=== PATIENT | male | born 1975 | race Caucasian/White ===

== ENCOUNTER 2025-04-28 16:56 | Emergency (ER) | payer MEDICARE, MEDICAID, SELFPAY ==
--- NOTE | ~2025-04-28 | XR_ITS ---
CLINICAL HISTORY: SOB 2 view chest x-ray. Comparison: None Findings: Normal lung volumes. Lungs are clear. No pneumothorax or pleural effusion. Heart size normal. No passive venous congestion. No midline shift or tracheal deviation. No acute fracture. Impression: 1. No acute cardiopulmonary disease. This document has been electronically signed by: Jeb De Jesus MD on 04/28/2025 18:21:25
[2025-04-28 17:01] VITALS: BP 157/83; PULSE 112; RESP 18; TEMP 37; O2SAT 96; BMI 25.1
--- NOTE | 2025-04-28 17:01 | ED_ITS ---
HPI - Skin/Abscess/Foreign Bdy General Chief complaint: Skin/Abscess/Foreign Body Stated complaint: rt ear lump/needs drained Time Seen by Provider: 04/28/25 17:24 Source: patient and RN notes reviewed Mode of arrival: ambulatory Limitations: no limitations History of Present Illness ED Provider: Ayde Hensley PA-C HPI narrative: This is a 19-uaz[age]-kxb-male, with a past medical history of asthma as well as an PA, who presents emergency department with concerns of painful swelling of the left ear region approximately seven days ago. Since onset the lump has progressively enlarged and pain has intensified. He reports intermittent fevers over the same time period, with a documented peak of 103 ?F two days ago. He is taking acetaminophen for fever and pain (most recently at ~13:00 today); he has not taken ibuprofen. No preceding trauma, insect bite, or manipulation of the ear recalled. A similar swelling occurred >2 years ago and resolved after drainage. Associated symptoms include a mild productive cough (attributed to smoking cessation) and mild sore throat. He denies dysphagia. Occasional shortness of breath occurs, which he attributes to asthma; mild SOB is present currently. No abdominal pain, nausea, or vomiting. No current chest pain. No other complaints or concerns at this time. MD complaint: abscess/boil Onset (ago): day(s) Quality: aching Pain Consistency: constant Relieving factors: none Exacerbating factors: none Context: none Associated symptoms: fever, myalgias and cough Treatments prior to arrival: none Related Data Previous Rx's ?Medication ?Instructions ?Recorded cephalexin 500 mg capsule 500 mg PO QID 7 days #28 cap s 04/28/25 doxycycline hyclate 100 mg tablet 100 mg PO BID 7 days #14 tabs 04/28/25 Allergies Allergy/AdvReac Type Severity Reaction Status Date / Time naproxen (From Naprosyn) Allergy Intermediate Hives Verified 04/28/25 17:03 tramadol (From Ultram) Allergy Intermediate Rash Verified 04/28/25 17:03 bee pollen (BEE STINGS) Allergy Unknown THROAT Verified 04/28/25 17:03 SWELLING cyclobenzaprine Allergy Unknown RASH Verified 04/28/25 17:03 ibuprofen (From Motrin) Allergy Unknown Rash Verified 04/28/25 17:03 onion (ONIONS) Allergy Unknown UNKNOWN Verified 04/28/25 17:03 rofecoxib Allergy Unknown RASH Verified 04/28/25 17:03 Review of Systems 2 Review of Systems: Constitutional : +Fever, No Chills ENT/Mouth : No sore throat, No Rhinorrhea Eyes: No Eye Pain, No Swelling, No Redness Cardiovascular : No Chest Pain, No SOB Respiratory : +Cough, No Sputum Gastrointestinal : No Nausea, No Vomiting, No Diarrhea, No abdominal Pain Genitourinary : No Dysuria, No Hematuria Musculoskeletal : No joint pain, No Myalgias, No Joint Swelling Skin : No Skin Lesions Neuro : No Weakness, No Numbness, No Headache All other systems reviewed and are negative Yes all other systems are reviewed and are negative Constitutional: Constitutional: Reports as per HPI Physical Exam 2 Vital Signs: Vital Signs: Last Vital Signs Temp 98.3 F 04/28/25 20:19 Pulse 84 04/28/25 20:19 Resp 16 04/28/25 20:19 BP 129/81 04/28/25 20:19 Pulse Ox 97 04/28/25 20:19 O2 Del Method Room Air 04/28/25 20:19 BMI result Body Mass Index 25.1 Const: General: cooperative, comfortable and no acute distress O rientation/consciousness: patient oriented x3 Limitations: no limitations HEENT: Head: Yes normal to inspection, Yes normocephalic and Yes atraumatic Ears: hearing grossly normal bilaterally and TM's normal bilaterally General nose exam: Normal external nose present Face and sinus: Yes normal facial exam Mouth: Normal oral and palatal mucosa present, oropharynx normal and moist mucous membranes Throat: Yes posterior oropharynx normal Eyes: General: appearance normal, both eyes and all related structures E yelids: Yes eyelids normal Conjunctivae: conjunctivae normal Sclerae: s clerae normal Pupils: Equal, round and reactive pupils present EOM: EOMs intact bilaterally Neck: Neck: Yes normal visual inspection, Yes full ROM and Yes no lymphadenopathy Lymphatic: no lymphadenopathy noted Chest: Chest palpation & inspection: normal inspection of the chest Resp: Effort & Inspection: normal respiratory effort and able to speak in complete sentences Auscultation: clear to auscultation bilaterally, no crackles, no rales, no rhonchi and no wheezes Cardio: Rate: regular rate Rhythm: regular rhythm Heart sounds: S1 normal heart sound present and S2 normal heart sound present GI: Inspection: Yes normal to inspection Skin: Other: right ear, just inferior to the earlobe there is an area of tenderness and fluctuance. No surrounding erythema or warmth. No drainage. Neuro: General: patient oriented x3 and moves all extremities Cranial nerves: Yes Equal, round and reactive pupils present Extrem: General: Yes normal to inspection Right upper extremity: normal to inspection Left upper extremity: normal to inspection Right lower extremity: normal to inspection Left lower extremity: normal to inspection Course Course Course Narrative: Deena Diehl TESTING ENGINEER 04/28 1702 This is a rapid medical exam. Deferred additional HPI, ROS, PE to primary provider. 50yo male with PMH of asthma here with cyst to right ear lobe x 7 days Will need I&D VSS Medications Administered Discontinued Medications Generic Name Dose Route Start Last Admin Trade Name Freq PRN Reason Stop Dose Admin Cephalexin HCl 500 mg 04/28/25 19:25 04/28/25 19:40 Cephalexin 500 Mg Capsule PO 04/28/25 19:26 500 mg ONCE ONE Administration Doxycycline Monohydrate 100 mg 04/28/25 19:25 04/28/25 19:40 Doxycycline Monohydrate 100 Mg Capsule PO 04/28/25 19:26 100 mg ONCE ONE Administration Lidocaine HCl 5 ml 04/28/25 17:44 04/28/25 18:22 Lidocaine Hcl 1 % Mpf 5 Ml Vial INFILTRATI 04/28/25 17:45 5 ml ONCE ONE Administration Medical Decision Making Medical Decision Making [facility] Narrative: Patient presents with a 7-day history of painful, enlarging swelling just inferior to the right ear lobe with systemic symptoms (fever up to 103 ?F, tachycardia, diaphoresis). Concern for infected auricular cyst/abscess versus other soft-tissue infection. Additional work-up initiated today. Problem #1: Painful swelling with systemic symptoms (suspected abscess/cellulitis) Assessment: 7-day progressive enlargement and pain, intermittent high-grade fevers, tachycardia on presentation, local tenderness and swelling of external ear. Possible recurrence of prior abscess vs cyst. Plan: * Obtain blood work for baseline labs and infection evaluation * Discuss case with supervising physician/colleague for bedside evaluation and input who saw patient at bedside, recommending I&D - likely a cyst, patient understands that this will likely return even with incision and drainage and patient will need to be seen by dermatology or ENT. Attending physician also in agreement to obtain labs given fever. Area does not appear to be cellulitic in nature or abscess in nature therefore unclear what patient is having fever from. * Continue acetaminophen as needed for fever/pain. * Reassess following lab results; further management to be determined (possible I&D, antibiotics, or ENT involvement). Problem #2: Fever with tachycardia ? rule out systemic infection Assessment: Intermittent fevers to 103 ?F and elevated heart rate today, likely secondary to the local infectious process. Plan: * Labs as above to evaluate for systemic involvement. * Monitor vital signs during ED stay. * Symptomatic control with acetaminophen. Patient aware of need for further evaluation; will remain in ED for continued work-up. 6:50 PM 04/28/2025 (Ayde Hensley PA-C): Labs returned, no profound leukocytosis. Stable H&H. Chemistry revealing no significant electrolyte derangement. Chest x-ray does not reveal any acute pathology. Awaiting viral swabs. EKG was performed, revealing normal sinus rhythm at a ventricular rate of 82 beats per minute, OH interval 164, QT QTC 358/ 418. There is a right bundle-branch block, which was not detected on previous EKG however previous EKG in system is from 2007. Troponin was added to the workup. Incision and drainage was performed, revealing an infected cyst. Will treat with antibiotics. We will also repeat troponin due to EKG changes - although this is unlikely new. Pt reports that he had a PA last year and was seen at [facility]. He has no active chest pain or shortness of breath. Sign out given to my colleague pending repeat troponin. 8:46 PM 04/28/2025 (Deja Serjio Edmar WELLS): Troponin is negative x2. He does not have any active chest pain. Patient will be discharged. Referral to general surgery clinic given to the patient. Agrees and understands this plan. All questions were addressed. Differential Diagnosis Differential Diagnoses: The differential diagnosis associated with the presentation includes Cellulitis, cyst, abscess, insect bite Lab Data [facility] Lab Attestation statement: I reviewed the patient's lab results. See [facility] 04/28/25 18:14 04/28/25 18:14 Labs: Lab Results 04/28/25 04/28/25 Range/Units 18:14 20:01 WBC 10.9 H (4.8-10.8) X10*3/uL RBC 4.61 (4.60-5.80) X10*6/uL Hgb 14.7 (14.0-18.0) g/dl Hct 41.9 L (42.0-52.0) % MCV 90.9 (80.0-98.0) fL MCH 31.9 (27.0-33.0) pg MCHC 35.1 (31.0-36.0) g/dl RDW 12.7 (11.0-16.0) % Plt Count 282 (160-400) X10*3/uL MPV 10.4 (9.4-12.4) fL Immature Gran % (Auto) 0.5 H (0.0-0.4) % Neut % (Auto) 60.4 (45-73) % Lymph % (Auto) 28.7 (20-40) % [place] % (Auto) 7.1 (2-11) % Eos % (Auto) 2.8 (0-4) % Baso % (Auto) 0.5 (0-2) % Lymph # (Auto) 3.1 (1.2-4.9) X10*3/uL [place] # (Auto) 0.8 (0.1-1.2) X10*3/uL Eos # (Auto) 0.3 (0.0-0.4) X10*3/uL Baso # (Auto) 0.1 (0.0-0.2) X10*3/uL Abs Immat Gran (auto) 0.05 H (0.00-0.03) X10*3/uL Absolute Neuts (auto) 6.6 (2.0-8.3) x10*3/uL Absolute Nucleated RBC 0.000 (0.0-0.012) X10*3/uL Nucleated RBC % (auto) 0.0 (0.0-0.2) /100WBC Sodium 140 (135-145) mmol/L Potassium 3.9 (3.3-5.1) mmol/L Chloride 107 (96-108) mmol/L Carbon Dioxide 23 (22-29) mmol/L Anion Gap 14 (12-20) BUN 11 (9-16) mg/dL Creatinine 0.92 (0.5-1.4) mg/dL Estim Creat Clear Calc 83.5 Estimated GFR > 60 Random Glucose 88 (60-115) mg/dL Lactic Acid 1.0 (0.5-2.0) mmol/L Calcium 9.6 (8.4-10.2) mg/dL Total Bilirubin 0.3 (0.0-1.0) mg/dL Direct Bilirubin 0.1 (0.0-0.5) mg/dL AST 22 (5-37) U/L ALT 15 (0-40) U/L Alkaline Phosphatase 101 (39-117) U/L Troponin I High Sens < 2.7 < 2.7 (<3.5-35.0) ng/L Total Protein 7.0 (6.5-8.0) g/dL Albumin 4.6 (3.5-5.0) g/dL Influenza Type A (PCR) NEGATIVE (Negative) Influenza Type B (PCR) NEGATIVE (Negative) RSV RNA Qual (PCR) NEGATIVE (Negative) SARS-CoV-2 RNA (RT-PCR) NEGATIVE (Negative) Radiology Impression Discussion of test interpretation with radiology: I have reviewed the radiologist's reading. Radiologist Impression: Findings: Normal lung volumes. Lungs are clear. No pneumothorax or pleural effusion. Heart size normal. No passive venous congestion. No midline shift or tracheal deviation. No acute fracture. Impression: 1. No acute cardiopulmonary disease. This document has been electronically signed by: Jeb De Jesus MD on 04/28/2025 18:21:25 Dictated By: Jeb De Jesus MD Attestation Attending Attestation: I saw this patient with the PA. I was involved in medical decision making of this patient and was present for physical exam. Procedures Abscess I/D Site: face Side (if applicable): right Local Anesthetic: lidocaine 1% Amount of anesthesia used (mL): 3 Technique: incised with blade Amount of fluid expressed (mL): 5 Sent for culture/gram staining?: Yes Irrigation: Yes Packing used?: none Discharge Plan Discharge Clinical Impression: Infected sebaceous cyst Patient Disposition: Home, Self-Care Instructions: Cyst (ED) Additional Instructions: You were seen in the emergency department you were found to have an infected sebaceous cyst. We performed an incision and drainage to the area. The area may continue to drain, please apply warm compresses to the area to allow facilitation of this. There is a high likelihood that this cyst will return therefore it is very important that you follow-up with the surgical team. Call to make an appointment. please keep wound clean and dry. Watch for any signs of infection including but not limited to increased redness, swelling, fevers or chills. Please take prescribed antibiotic as directed, finish the entire course even if your symptoms improve. If any new or worsening symptoms occur including but not limited to severe chest pain, shortness for breath, increased redness, swelling, fevers or chills, please return for re-evaluation. Your EKG did show a right bundle-branch block, you have a history of a heart attack, and this could be an old EKG finding therefore we repeated blood testing which revealed that this is not a new finding. I am giving you a referral to a regroover as you are not currently being followed by one. Prescriptions: New cephalexin 500 mg capsule 500 mg PO QID 7 Days Qty: 28 0RF doxycycline hyclate 100 mg tablet 100 mg PO BID 7 Days Qty: 14 0RF Referrals: [facility] [Provider Group] [facility] [Provider Group, General Surgery] Interventions: ED Discharge Assessment Last Done: 04/28/25 20:47 Print Language: Croatian
--- NOTE | 2025-04-28 17:42 | ECG_ITS ---
Test Reason : TACHY Blood Pressure : */* mmHG Vent. Rate : 82 BPM Atrial Rate : 82 BPM P-R Int : 164 ms QRS Dur : 120 ms QT Int : 358 ms P-R-T Axes : 52 -20 31 degrees QTcB Int : 418 ms Normal sinus rhythm Right bundle branch block Abnormal ECG When compared with ECG of 01-Sep-2007 06:07, Right bundle branch block is now Present Referred By: Ayde Hensley Electronically Signed By: JYOTHI PETTY MD
[2025-04-28 18:22] LABS: MANUAL DIFF FLAG NO
[2025-04-28] MEDS: Lidocaine HCl 1 % MPF 5 ML VIAL INFILTRATI (18:22)
[2025-04-28 18:26] LABS: Hematocrit 41.9 % (42.0-52.0); Hemoglobin 14.7 g/dl (14.0-18.0); Imm Gran Abs Auto 0.05 X10*3/uL (0.00-0.03); Imm Gran Pct Auto 0.5 % (0.0-0.4); Lymphocytes Absolute Auto 3.1 X10*3/uL (1.2-4.9); Mean Corpuscular HGB Conc 35.1 g/dl (31.0-36.0); Mean Corpuscular Hemoglobin 31.9 pg (27.0-33.0); Mean Corpuscular Volume 90.9 fL (80.0-98.0); NRBC Abs Auto 0.000 X10*3/uL (0.0-0.012); NRBC Pct Auto 0.0 /100WBC (0.0-0.2); Platelet Count 282 X10*3/uL (160-400); Red Blood Count 4.61 X10*6/uL (4.60-5.80); White Blood Count 10.9 X10*3/uL (4.8-10.8)
[2025-04-28 18:38] LABS: Alanine Aminotransferase 15 U/L (0-40); Albumin Level 4.6 g/dL (3.5-5.0); Alkaline Phosphatase 101 U/L (39-117); Anion Gap 14 (12-20); Aspartate Amino Transferase 22 U/L (5-37); Blood Urea Nitrogen 11 mg/dL (9-16); Calcium 9.6 mg/dL (8.4-10.2); Carbon Dioxide 23 mmol/L (22-29); Chloride 107 mmol/L (96-108); Creatinine Clr Calc Pharmacy 83.5; Estimated Glomerular Filt Rate > 60; Potassium 3.9 mmol/L (3.3-5.1); Sodium 140 mmol/L (135-145); Total Protein 7.0 g/dL (6.5-8.0)
[2025-04-28 19:06] LABS: Resp Syncy Virus RNA Qual PCR NEGATIVE (Negative); SARS COV2 PCR INHOUSE NEGATIVE (Negative)
[2025-04-28 19:14] LABS: Troponin-I High Sensitivity < 2.7 ng/L (<3.5-35.0)
[2025-04-28 20:19] VITALS: BP 129/81; PULSE 84; RESP 16; TEMP 36.8; O2SAT 97
[2025-04-28 20:37] LABS: Troponin-I High Sensitivity < 2.7 ng/L (<3.5-35.0)
[2025-04-28 20:47] VITALS: BP 129/81; PULSE 84; RESP 16; TEMP 36.8; O2SAT 97
== END 2025-04-28 20:48 | disposition home or self-care (01) ==
PROVIDERS: Physician Assistant Medical; Emergency Provider Student in an Organized Health Care Education/Training Program
DX: L72.3 Sebaceous cyst (principal); R50.9 Fever, unspecified; I45.10 Unspecified right bundle-branch block; I25.2 Old myocardial infarction; Z88.5 Allergy status to narcotic agent; Z88.6 Allergy status to analgesic agent
CPT/HCPCS: 10060; 71046; 80048; 80076; 83605; 84484; 85025; 87040; 87070; 87205; 87637; 93005; 99284; J2003

== ENCOUNTER → 2025-04-28 17:42 | Outpatient (BNV) | payer MEDICARE, MEDICAID, SELFPAY | PROVIDERS: Emergency Provider Student in an Organized Health Care Education/Training Program; Visit Provider Internal Medicine Cardiovascular Disease | DX: I45.10 Unspecified right bundle-branch block (principal) | CPT/HCPCS: 93010 ==

== ENCOUNTER 2025-05-08 09:08 | Outpatient (AMB) | payer MEDICARE, MEDICAID, SELFPAY ==
--- NOTE | 2025-05-08 09:09 | MHC.OFFVIS ---
Vital Signs 05/08/25 09:14 Height 5 ft 5 in Weight 151 lb 0.266 oz BMI 25.1 Intake Visit Reasons: sebaceaous cyst ear Intake Note: Patient presents for [facility] emergency department follow-up for sebaceous cyst ear. Pt c/o; completed cephalexin and doxycycline, reports this cyst was drained in the ER on 04/28/2025 but it is swelling again, reports pain, right auricular area, denies fever, chills, nausea or vomiting, denies drainage. ER visit: 04/28/2025 04/28/2025: Chest X-ray Virtual Classroom Manager Required: No Accompanied by: Self / Same As Patient Allergies naproxen (From Naprosyn) Allergy (Intermediate, Verified 05/08/25 09:16) Hives tramadol (From Ultram) Allergy (Intermediate, Verified 05/08/25 09:16) Rash bee pollen (BEE STINGS) Allergy (Unknown, Verified 05/08/25 09:16) THROAT SWELLING cyclobenzaprine Allergy (Unknown, Verified 05/08/25 09:16) RASH ibuprofen (From Motrin) Allergy (Unknown, Verified 05/08/25 09:16) Rash onion (ONIONS) Allergy (Unknown, Verified 05/08/25 09:16) UNKNOWN rofecoxib Allergy (Unknown, Verified 05/08/25 09:16) RASH HPI HPI sebaceaous cyst ear: Details: Patient reports that he was seen the emergency department on 04/28/2025 where he had incision and drainage of the right ear cyst. He has completed the course of antibiotics that was prescribed for him initially this was smaller after drainage but has since increased in size and become painful again. [facility] Surgical History (Updated 05/08/25 @ 09:17 by MARTINE Iglesias) No pertinent past surgical history Family History (Updated 05/08/25 @ 09:17 by MARTINE Iglesias) Other Family history unknown Social History (Updated 05/08/25 @ 09:17 by MARTINE Iglesias) Patient Tobacco Use Status: Tobacco use Unknown Physical Exam Vital Signs: BMI result Body Mass Index 25.1 Const General: comfortable and no acute distress Orientation/consciousness: patient oriented x3 HEENT Head images:  1. 2 x 3 cm area of induration with scant fluctuance superior aspect. No erythema, no drainage. Previous incision and drainage site healed over. Tender to palpation Neuro General: patient oriented x3 Assessment & Plan Assessment & Plan (1) Infected sebaceous cyst: Code(s): L72.3 - Sebaceous cyst; L08.9 - Local infection of the skin and subcutaneous tissue, unspecified Category: Medical Plan 50-year-old male seen in the office for right ear cyst following incision and drainage in the ED on 04/28/2025. Initially had relief after incision and drainage. G stain from culture taken and I&D showing 4+ Gram-positive cocci, no growth on culture. Completed his course of antibiotics. But states over the past week and has been filling up slowly and causing more pain. On exam there is a 2 x 3 cm area of induration with scant fluctuance on the superior aspect which may represent a seroma or recurrent abscess buildup. There is no active drainage, no evidence of infection such as redness. Due to schedule in the office today unable to perform incision drainage, recommending he return in 2 weeks for possible incision and drainage. In the meantime I recommended using warm compress to the area 2 to 3 times a day which may facilitate resolution of this issue. If not resolving will likely incision and drainage in the office, may need excision of this down the road once stabilized. No need for additional antibiotics as this appears to not be acutely infected. Did discuss return precautions, if developing fevers, worsening pain recommended he present to the ED. he understands this and agrees. Coding Level of Care Code New Pt Level 4 (21411) Diagnoses Infected sebaceous cyst L72.3; L08.9
[2025-05-08 09:14] VITALS: BMI 25.1
--- OUTSIDE RECORDS SUMMARY | 2025-05-08 10:02 | XMS_ITS | Clinical Summary ---
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 D X:Wasp sting-induced anaphylaxis Chronic back pain 07/26/2009 DX:Chronic mitch k pain Compartment syndrome (CMS/HCC V24) DX:Compartment syndrome (HCC); COMMENT: of leg Family History Medical History Relation Name Comments Heart attack Father age 51 Coronary artery disease Father's side mot her' side also Cataracts Mother Diabetes Mother and sister Hypertension Mother and sister Blindness Neg Hx Glaucoma Neg Hx Macular degeneration Neg Hx Strabismus Neg Hx Relation Name Status Comments Brother (Age 18) Father (Age 51) Father's side Mother Sister (Age 27) kiklled in [place] Social History Tobacco Use Types Packs/Day Years Used Date Smoking Tobacco: Every Day Smokeless Tobacco: Never Alcohol Use Standard Drinks/Week Comments Yes 0 (1 standard drink = 0.6 oz pur e alcohol) Sex and Gender Information Value Date Recorded Sex Assigned at Not on file Legal Sex Male 1:30 PM EST Gender Identity Not on file Sexual Orientation Not on file Obstetrics History Plan of Treatment Health Maintenance Due Date Last Done Comments Hepatitis B Vaccines (1 of 3 - 19+ 3-dose series) 1994 DTaP,Tdap,and Td Vaccines (2 - Td or Tdap) 05/23/2020 05/23/2010 Depression Screening 06/14/2024 Pneumococcal Vaccine: 50+ Ye ars (1 of 1 - PCV) 2025 Zoster Vaccines (1 of 2) 2025 COVID-19 Vaccine (1 - 2024-2 6 season) 2025 Influenza Vaccine (#1) 2025 RSV Immunization Adult Patie nts (1 - 1-dose 75+ series) 2050 HIB Vaccines Aged Out No longer eligi ble based on patient's age to complete this topic HPV Vaccines Aged Out No longer eligi ble based on patient's age to complete this topic Hepatitis A Vaccines Aged Out No long er eligible based on patient's age to complete this topic IPV Vaccines Aged Out No longer eligi ble based on patient's age to complete this topic MMR Vaccines Aged Out No longer eligi ble based on patient's age to complete this topic Meningococcal ACWY Vaccine Aged Out N o longer eligible based on patient's age to complete this topic Meningococcal B Vaccine Aged Out No l onger eligible based on patient's age to complete this topic RSV Immunization Patients Un bridget 20 months Aged Out No longer eligible b ased on patient's age to complete this topic Varicella Vaccines Aged Out No longer eligible based on patient's age to complete this topic Care Teams Grinder Gear Relationship Specialty Start Date End Date Kenneth Walsh MD [address] [place] [address] [address] [place], [place] PCP - General Internal Medicine 03/25/21
== END 2025-05-08 09:25 | disposition home or self-care (01) ==
LOC: HO.HGS 09:09
PROVIDERS: PCP Nurse Practitioner
DX: L72.3 Sebaceous cyst (principal); L08.9 Local infection of the skin and subcutaneous tissue, unspecified
CPT/HCPCS: 99204

== ENCOUNTER → 2025-05-08 09:08 | Outpatient (BNVA) | payer MEDICARE, MEDICAID, SELFPAY | PROVIDERS: PCP Nurse Practitioner | DX: L72.3 Sebaceous cyst (principal); L08.9 Local infection of the skin and subcutaneous tissue, unspecified | CPT/HCPCS: 99202 ==

== ENCOUNTER 2025-05-16 14:08 | Outpatient (AMB) | payer MEDICARE, MEDICAID, SELFPAY ==
[2025-05-16 14:09] VITALS: BP 140/76; PULSE 105; BMI 24.9
--- NOTE | 2025-05-16 14:09 | A.OFFVIS_ITS ---
Vital Signs 05/16/25 14:09 Height 5 ft 5 in Weight 149 lb 14.629 oz BMI 24.9 BP 140/76 H Blood Pressure Location Lt brachial Position Sitting Pulse 105 H Intake Visit Reasons: [facility] [place] [facility] Discharge/ Chest pain Intake Note: [facility] [facility] Follow-up c/o heart burn for year Paleobotanist Required: No Allergies naproxen (From Naprosyn) Allergy (Intermediate, Verified 05/08/25 09:16) Hives tramadol (From Ultram) Allergy (Intermediate, Verified 05/08/25 09:16) Rash bee pollen (BEE STINGS) Allergy (Unknown, Verified 05/08/25 09:16) THROAT SWELLING cyclobenzaprine Allergy (Unknown, Verified 05/08/25 09:16) RASH ibuprofen (From Motrin) Allergy (Unknown, Verified 05/08/25 09:16) Rash onion (ONIONS) Allergy (Unknown, Verified 05/08/25 09:16) UNKNOWN rofecoxib Allergy (Unknown, Verified 05/08/25 09:16) RASH Medication List - Last Reconciled 05/16/25 by Rick Palmer NP No Known Home Meds HPI Comments Details: This is a 50-year-old male patient new to our office referred from emergency room for further evaluation of right bundle branch block. Moving forward, patient will be under Dr. 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 Patient was seen in the ER recently for an abscess/lump under his right ear which was drained and has been referred out to general surgery. During that time, patient had an EKG that showed right bundle branch block which patient states is new for him. Patient also reports that about 2-3 years ago, patient was at [facility] for chest pain and shortness of breath where he was told he had a heart attack, no records for this at this time. Patient states that he never had any testings done or started on any medications after discharge. Patient also notes that he has had elevated blood pressures at his PCP visit however is not on any medications for this. Patient states that after his discharge from [facility], patient's chest pain resolved however for the past 1 year patient's chest pain is back which is exertional in nature. Patient states that he also gets some shortness of breath with this. Patient is also reporting palpitations otherwise is denying any dizziness, orthopnea, PND, leg edema, presyncope or syncope. Patient also notes that he has a family history of coronary artery disease. [facility] Surgical History No pertinent past surgical history Family History (Updated 05/16/25 @ 16:42 by Rick Palmer NP) Mother Diabetes Coronary artery disease Hypertension Other Family history unknown Social History Patient Tobacco Use Status: Tobacco use Unknown Review of Systems Const Denies chills, Denies daytime sleepiness, Denies fatigue, Denies fever(s), Denies frequent falls, Denies poor appetite, Denies snoring, Denies stops breathing during sleep, Denies weakness, Denies weight gain and Denies weight loss Eyes Denies loss of vision ENT Denies dizziness and Denies hearing loss Card Denies chest pain, Denies claudication, Denies leg edema, Denies lightheadedness, Denies palpitations, Denies dyspnea, Denies dyspnea on exertion and Denies orthopnea Resp Denies cough, Denies excessive phlegm production, Denies dyspnea, Denies dyspnea on exertion, Denies snoring and Denies wheezing GI Denies abdominal pain, Denies hematochezia, Denies change in bowel habits, Denies nausea and Denies vomiting Denies dysuria and Denies urinary frequency Musc Denies arthralgias, Denies muscle weakness and Denies numbness Skin/Breast Denies nail changes and Denies rash Neuro Denies Abnormal speech present, Denies dizziness, Denies frequent falls, Denies loss of vision, Denies memory loss, Denies numbness and Denies weakness Psych Denies depression and Denies memory loss Endo Denies fatigue and Denies palpitations Ha/Lymph Reports easy bruising and Reports other (anemia) Aller/Immun Denies wheezing Physical Exam Vital Signs: Last Vital Signs Pulse 114 H 05/16/25 14:09 BP 140/76 H 05/16/25 14:09 BMI result Body Mass Index 24.9 Const General: cooperative, healthy appearing, comfortable and no acute distress Orientation/consciousness: patient oriented x3 HEENT Other: Abscess under his right ear Neck Neck: Yes normal visual inspection, Yes trachea midline and Yes supple Chest Chest palpation & inspection: normal inspection of the chest Resp Effort & Inspection: normal respiratory effort Auscultation: clear to auscultation bilaterally, no crackles, no rales, no rhonchi and no wheezes Cardio Jugular venous distension: no JVD Palpation: normal PMI Rate: tachycardic Rhythm: regular rhythm Heart sounds: S1 normal heart sound present, S2 normal heart sound present, no click, no gallops, no murmurs and no rubs Peripheral pulses: Peripheral pulses 2+ throughout GI Inspection: Yes normal to inspection Palpation (GI): Soft to palpation Auscultation: normal bowel sounds Skin General skin exam: no rashes or lesions noted Neuro General: patient oriented x3 Speech: No Abnormal speech present Extrem General: Yes normal to inspection, No no pedal edema and No calf tenderness Psych Appearance: grossly normal Mental Status: mental status grossly normal Speech and movement: Normal speech and movement present Office Procedures EKG Details: EKG today showed sinus tachycardia, rate 105 beats per minute, right bundle branch block, Q-wave present in the inferolateral leads suggesting possible infarct, nonspecific STT wave, [place], [place]. [id number], Complete Assessment & Plan Assessment & Plan (1) Chest pain: Code(s): R07.9 - Chest pain, unspecified Category: Medical (2) SOB (shortness of breath): Code(s): R06.02 - Shortness of breath Category: Medical (3) RBBB: Code(s): I45.10 - Unspecified right bundle-branch block Category: Medical (4) Hypertension: Code(s): I10 - Essential (primary) hypertension Category: Medical Plan Patient reports that he was told he had an [place] back in 2022 at [facility] when he was therefore chest pain and shortness of breath however never followed up after hospital discharge. Patient also states that he never had any testings were never discharged on any medications at that time. We have no records for this at this time we will request from [facility] and PCP. EKG today with a right bundle branch block and Q-waves in the inferolateral leads. Patient's reports of exertional chest pain and shortness breath is concerning and given family history of coronary artery disease, patient will need an ischemic workup with a myocardial stress perfusion to assess for ischemic changes. We will also get an echo to evaluate for LV systolic and diastolic dysfunction. Given his reports of palpitations, we will get a Holter study to assess for potential arrhythmias. We will try to get these testing within the next few weeks. Heart rate today is elevated. Blood pressure also is elevated. I will start patient on losartan and metoprolol for blood pressure management. Advised to monitor blood pressures at home with a goal less than 130/80. Advised on low-s alt diet. We will also get a lipid profile. If his testings are normal then we will pursue a coronary CTA. Advised on heart healthy diet, med compliance, and management of vascular risk factors. Follow up after testings. In the interim, patient will call the office with any concerns or change in symptoms. Advised to seek ER care in case of exertional chest pain not resolved with rest. This note was generated using voice recognition software. While every effort has been made to ensure accuracy and proper utility service worker, there may be occasional errors that could affect the content or meaning of the described symptoms. Orders: Orders AMB EKG-In Office Today R07.9 - Chest pain, unspecified Lipid Panel Today R07.9 - Chest pain, unspecified Basic Metabolic Panel Today R07.9 - Chest pain, unspecified CA stress test 4 Weeks R06.02 - Shortness of breath, R07.9 - Chest pain, unspecified NM cardiolite stress test Today R07.9 - Chest pain, unspecified CA echo transthoracic complete 4 Weeks I45.10 - Unspecified right bundle-branch block, R07.9 - Chest pain, unspecified ECG holter monitor 48 hour Today R00.2 - Palpitations Medications: New metoprolol succinate ER 25 mg PO DAILY 90 tabs 3RF losartan 25 mg PO DAILY 90 tabs 3RF Coding Level of Care Code New Pt Level 4 (15423) Complex visit Add On G2211 Diagnoses Chest pain R07.9 SOB (shortness of breath) R06.02 RBBB I45.10 Hypertension I10 CPT Codes EKG - CPT: 15045-[id number], Complete ([id number]) Time Spent (min) 37 Comment Time spent in reviewing the chart, test results, assessment, counseling and documentation.
--- OUTSIDE RECORDS SUMMARY | 2025-05-16 17:01 | XMS_ITS | Clinical Summary ---
Author Organization [facility] Address [address] [place] [address] Care Team Providers Care It Network Architect Name Role Phone Kenneth Walsh MD Primary Care Provider [phone] Surgical History Surgery Date Site/Laterality Comments OTHER SURGICAL HISTORY PROCEDURE: [place] ANESTHESIA OPEN PROCEDURES UPPER 2/3 FEMUR NOS; COMMENT: 1989 KNEE ARTHROSCOPY PROCEDURE: [place] ARTHROSCOPY AID [place] SPINE&/FX KNEE W/O FIXJ; [...] age to complete this topic Care Teams It Network Architect Relationship Specialty Start Date End Date Kenneth Walsh MD [address] [place] [address] [address] [place], [place] PCP - General Internal Medicine 03/25/21
== END 2025-05-16 14:50 | disposition home or self-care (01) ==
LOC: HO.HCS 14:08
PROVIDERS: PCP Nurse Practitioner
DX: R07.9 Chest pain, unspecified (principal); R06.02 Shortness of breath; I45.10 Unspecified right bundle-branch block; I10 Essential (primary) hypertension
CPT/HCPCS: 93010; 99204; G2211

== ENCOUNTER → 2025-05-16 14:08 | Outpatient (BNVA) | payer MEDICARE, MEDICAID, SELFPAY | PROVIDERS: PCP Nurse Practitioner | DX: I10 Essential (primary) hypertension (principal); I45.19 Other right bundle-branch block; R07.89 Other chest pain; R06.02 Shortness of breath | CPT/HCPCS: 93005; 99202 ==

== ENCOUNTER 2025-05-17 08:59 | Emergency (ER) | payer MEDICARE, MEDICAID, SELFPAY ==
[2025-05-17 09:01] VITALS: BP 127/72; PULSE 95; RESP 18; TEMP 36.5; O2SAT 99; BMI 27.5
--- NOTE | 2025-05-17 09:19 | ED.GENADULT ---
HPI - General Adult General Chief complaint: Skin/Abscess/Foreign Body Stated complaint: lump R ear Time Seen by Provider: 05/17/25 09:06 Source: patient and RN notes reviewed Mode of arrival: ambulatory Limitations: no limitations History of Present Illness ED Provider: Ayde Hensley PA-C HPI narrative: This is a 50-year-old male, with a past medical history of asthma and MD who presents emergency department with concerns of worsening right sided sebaceous cyst. Pt was seen here on April 28, 2025 in the emergency room where the incision and drainage was performed, and patient was discharged on antibiotics. He completed the full course of antibiotics however several days after the incision and drainage he felt as though the area was filling up slowly and causing more pain. He was then seen by Rickey Vázquez on May 08, 2025 who recommended to return in 2 weeks for possible incision and drainage. Recommended using warm compresses 2-3 times per day. Patient denies any fevers or chills. No other complaints or concerns at this time. MD complaint: Abscess/boil Onset (ago): week(s) Location: neck Radiation: non-radiation Quality: aching Pain Consistency: constant Relieving factors: none Exacerbating factors: none Associated symptoms: denies other symptoms Treatments prior to arrival: none Related Data Previous Rx's ?Medication ?Instructions ?Recorded losartan 25 mg tablet 25 mg PO DAILY #90 tabs 05/16/25 metoprolol succinate 25 mg 25 mg PO DAILY #90 tabs 05/16/25 tablet,extended release 24 hr cephalexin 500 mg capsule 500 mg PO QID 7 days #28 caps 05/17/25 doxycycline hyclate 100 mg tablet 100 mg PO BID 7 days #14 tabs 05/17/25 Allergies Allergy/AdvReac Type Severity Reaction Status Date / Time naproxen (From Naprosyn) Allergy Intermediate Hives Verified 05/17/25 09:03 tramadol (From Ultram) Allergy Intermediate Rash Verified 05/17/25 09:03 bee pollen (BEE STINGS) Allergy Unknown THROAT Verified 05/17/25 09:03 SWELLING cyclobenzaprine Allergy Unknown RASH Verified 05/17/25 09:03 ibuprofen (From Motrin) Allergy Unknown Rash Verified 05/17/25 09:03 onion (ONIONS) Allergy Unknown UNKNOWN Verified 05/17/25 09:03 rofecoxib Allergy Unknown RASH Verified 05/17/25 09:03 Review of Systems Review of Systems: Constitutional : No Fever, No Chills ENT/Mouth : No sore throat, No Rhinorrhea Eyes: No Eye Pain, No Swelling, No Redness Cardiovascular : No Chest Pain, No SOB Respiratory : No Cough, No Sputum Gastrointestinal : No Nausea, No Vomiting, No Diarrhea, No abdominal Pain Genitourinary : No Dysuria, No Hematuria Musculoskeletal : No joint pain, No Myalgias, No Joint Swelling Skin : + Skin Lesions Neuro : No Weakness, No Numbness, No Headache All other systems reviewed and are negative Yes all other systems are reviewed and are negative Constitutional: Constitutional: Reports as per [facility] Past Medical History Surgical History No pertinent past surgical history Family History Family History (Updated 05/16/25 @ 16:42 by Rick Palmer NP) Mother Diabetes Coronary artery disease Hypertension Other Family history unknown Social History Social History Patient Tobacco Use Status: Tobacco use Unknown Physical Exam ED Exam Exam: General: Awake, alert, and oriented X3. No acute distress. HEENT: Normal inspection CVS: Normal heart rate and rhythm. Pulses normal. Respiratory: No respiratory distress Skin: See above> just inferior to the earlobe there is a palpable 2-1/2 I 2-1/2 cm fluctuant area, tender to palpation, mild erythema, no warmth. No cervical lymphadenopathy noted. Extremities: Normal to inspection Neuro: Oriented X 3. No motor deficit. No sensory deficit. Vital Signs: Vital Signs - 24 hr 05/17/25 09:01 05/17/25 10:50 Temperature 97.7 F 97.7 F Pulse Rate 95 95 Respiratory Rate 18 18 Blood Pressure 127/72 127/72 Pulse Oximetry 99 99 Oxygen Delivery Method Room Air Room Air BMI result Body Mass Index 27.5 Medications Administered Discontinued Medications Generic Name Dose Route Start Last Admin Trade Name Freq PRN Reason Stop Dose Admin Lidocaine HCl 5 ml 05/17/25 09:38 05/17/25 10:35 Lidocaine Hcl 1 % Mpf 5 Ml Vial SUBCUT 05/17/25 09:39 5 ml ONCE ONE Administration Procedures Abscess I/D Site: neck Side (if applicable): right Local Anesthetic: lidocaine 1% Amount of anesthesia used (mL): 4 Technique: incised with blade Amount of fluid expressed (mL): 8 Sent for culture/gram staining?: Yes Irrigation: No Packing used?: iodoform Medical Decision Making Medical Decision Making MDM Narrative: This is a 50-year-old male who presents emergency department with concerns of recurrent abscess/cyst. This was initially drained on April 28. He then followed up with the general surgeons outpatient, who recommended warm compresses, and to follow-up for repeat I and D next week. Patient states that the area has only increased in size therefore he return back to the emergency room. On arrival, patient does have area of induration and fluctuance, exam is concerning for infected sebaceous cyst and or abscess. I discussed case with surgical PA, Rickey Vázquez as he is familiar with this patient and this case. He recommends I&D with wick placement, I and D was performed, see procedure note for detail. Patient tolerated procedure well. Patient will return in 48-72 hours for wound check/wick removal. Encouraged warm soaks, discharged on doxycycline and Keflex. There was a wound culture that was sent to the lab. Given strict return precautions. He understands and agrees with plan. Patient stable for discharge. Differential Diagnosis Differential Diagnoses: The differential diagnosis associated with the presentation includes Cellulitis, cyst, abscess, sebaceous cyst Discharge Plan Discharge Clinical Impression: Infected sebaceous cyst Patient Disposition: Home, Self-Care Instructions: Cellulitis (ED), Cyst (ED) Additional Instructions: You were seen in the emergency department for an infected sebaceous cyst. We performed an incision and drainage. We had a place of wick in that area. Please return in 48-72 hours for wick removal. Change dressing daily. This may continue to drain, this is normal. Apply warm compresses to the area. Take prescribed antibiotic as directed, finish the entire course even if your symptoms improve. If any new or worsening symptoms occur including but not limited to increased pain, swelling, fevers, chills, please seek emergent care. Please follow-up with the surgeon's office next week as scheduled. Prescriptions: New doxycycline hyclate 100 mg tablet 100 mg PO BID 7 Days Qty: 14 0RF cephalexin 500 mg capsule 500 mg PO QID 7 Days Qty: 28 0RF No Action metoprolol succinate 25 mg tablet extended release 24 hr 25 mg PO DAILY Qty: 90 3RF losartan 25 mg tablet 25 mg PO DAILY Qty: 90 3RF Stand Alone Forms: Work/School Release Interventions: ED Discharge Assessment Last Done: 05/17/25 10:50 Discharge Date/Time: 05/17/25 10:50 Print Language: Burkinan
[2025-05-17] MEDS: Lidocaine HCl 1 % MPF 5 ML VIAL SUBCUT (10:35)
[2025-05-17 10:50] VITALS: BP 127/72; PULSE 95; RESP 18; TEMP 36.5; O2SAT 99
--- OUTSIDE RECORDS SUMMARY | 2025-05-17 11:04 | XMS_ITS | Clinical Summary ---
Author Organization [facility] Address [address] [place] [address] Care Team Providers Care Pipe Fitter Maintenance Name Role Phone Kenneth Walsh MD Primary Care Provider [phone] Surgical History Surgery Date Site/Laterality Comments OTHER SURGICAL HISTORY PROCEDURE: [place] ANESTHESIA OPEN PROCEDURES UPPER 2/3 FEMUR NOS; COMMENT: 1989 KNEE ARTHROSCOPY PROCEDURE: [place] ARTHROSCOPY AID [place] SPINE&/FX KNEE W/O FIXJ; [...] age to complete this topic Care Teams Pipe Fitter Maintenance Relationship Specialty Start Date End Date Kenneth Walsh MD [address] [place] [address] [address] [place], [place] PCP - General Internal Medicine 03/25/21
== END 2025-05-17 10:50 | disposition home or self-care (01) ==
PROVIDERS: Emergency Provider Emergency Medicine
DX: L72.3 Sebaceous cyst (principal); J45.909 Unspecified asthma, uncomplicated; I25.2 Old myocardial infarction
CPT/HCPCS: 10060; 87070; 87205; 99283; 99284; J2003

== ENCOUNTER 2025-06-02 14:34 | Emergency (ER) | payer MEDICARE, MEDICAID, SELFPAY ==
--- NOTE | ~2025-06-02 | CT_ITS ---
CLINICAL HISTORY: R Flank Pain CT abdomen and pelvis with contrast Comparison: None provided Findings: Lung bases: Bibasilar dependent atelectasis. Liver: No focal lesions. No biliary ductal dilatation. Patent portal vein. Gallbladder: Noninflamed gallbladder. Spleen: Multiple splenic calcifications likely due to granulomatous disease. Pancreas: No solid mass or main duct dilation. Adrenal glands: No nodules. Kidneys: No hydronephrosis. 6 mm nonobstructing stone in the mid right kidney. Pelvic organs: Normal. Peritoneum and Gastrointestinal: No bowel obstruction, pneumoperitoneum, or ascites. Noninflamed appendix. Colonic diverticulosis without acute diverticulitis. Lymph nodes: No lymphadenopathy. Vessels: Atherosclerosis. Bones and soft tissues: Multilevel degenerative changes of the lumbar spine and lower thoracic spine. IMPRESSION: No acute CT findings of the abdomen or pelvis. This document has been electronically signed by: Lorin Betancur MD on 06/02/2025 20:17:02
[2025-06-02 15:50] VITALS: BP 138/74; PULSE 119; RESP 18; TEMP 36.6; O2SAT 98; BMI 25.3
--- NOTE | 2025-06-02 15:51 | ED_ITS ---
HPI - Back Pain/Injury General Chief Complaint: Back Pain/Injury Stated Complaint: BULDING DISC IN BACK, NUMBNESS, PAIN IN LEGS Time Seen by Provider: 06/02/25 17:20 History of Present Illness ED Provider: Kathi Faye NP HPI Narrative: 50-year-old male medical history significant for asthma, myocardial infarction, patient's report of a lumbar discectomy (2020) due to bulging L4-L5 discs lumbar radiculopathy, kidney stones presents to the ED for evaluation reporting right- sided flank pain, with radiation into the right groin, and 2 episodes of urinary frequency and urgency where he had incontinence and could not make it to the bathroom. Patient reports that he had the sensation to urinate, and does not have lack of sensation of urination or bowel pattern. He does report that he fully has the urge to urinate or defecate. He denies feeling as though he is sitting on a horse, there was no saddle anesthesia. He denies any fever, chills. He reports the pain is worse when trying to bend over and tie his shoes for example, and has been ongoing now for 5 days. He can not determine if this is related to his kidneys, or his lumbar back pain. Denies any weakness or numbness in the legs. No history of IVDU. Is a chronic daily smoker, nicotine dependent. He denies any chest pain or pressure, shortness of breath, abdominal pain. No nausea or vomiting. No diarrhea or constipation. Related Data Previous Rx's ?Medication ?Instructions ?Recorded losartan 25 mg tablet 25 mg PO DAILY #90 tabs 09/05 metoprolol succinate 25 mg 25 mg PO DAILY #90 tabs 09/05 tablet,extended release 24 hr cephalexin 500 mg capsule 500 mg PO QID 7 days #28 cap s 05/17/25 doxycycline hyclate 100 mg tablet 100 mg PO BID 7 days #14 tabs 05/17/25 acetaminophen 500 mg tablet 1,000 mg (2 x 500 mg) PO Q 8H PRN 06/02/25 fever or pain 7 days #30 tabs lidocaine 5 % topical patch 1 patch topical DAILY 7 da ys #15 ea 06/02/25 (Lidoderm) methocarbamol 500 mg tablet 1,000 mg (2 x 500 mg) PO Q ID PRN 06/02/25 spasms 5 days #28 tabs Allergies Allergy/AdvReac Type Severity Reaction Status Date / Time naproxen (From Naprosyn) Allergy Intermediate Hives Verified 06/02/25 15:52 tramadol (From Ultram) Allergy Intermediate Rash Verified 06/02/25 15:52 bee pollen (BEE STINGS) Allergy Unknown THROAT Verified 06/02/25 15:52 SWELLING cyclobenzaprine Allergy Unknown RASH Verified 06/02/25 15:52 ibuprofen (From Motrin) Allergy Unknown Rash Verified 06/02/25 15:52 onion (ONIONS) Allergy Unknown UNKNOWN Verified 06/02/25 15:52 rofecoxib Allergy Unknown RASH Verified 06/02/25 15:52 Review of Systems 2 Review of Systems: ROS is otherwise negative unless mentioned in HPI. [facility] Past Medical History Surgical History No pertinent past surgical history Family History Family History (Updated 05/16/25 @ 16:42 by Rick Palmer NP) Mother Diabetes Coronary artery disease Hypertension Other Family history unknown Social History Social History Patient Tobacco Use Status: Tobacco use Unknown Advance Directives: No Advance Directives Information Provided: No Do you have a plan to hurt others: No Plan Physical Exam 2 Exam: Exam: Nursing notes and vital signs reviewed. Constitutional: Well-appearing, NAD. Alert. Oriented X3. Eyes: EOMI. ENT: Pharynx normal. Neck: Normal inspection. Neck supple. CVS: Normal heart rate and rhythm. Pulses normal. Respiratory: No respiratory distress. Breath sounds normal. Abdomen: Soft, nontender, R sided CVA tenderness. Back: No midline C, T, L, S-spine tenderness. +SLR test on the right. 2+ patellar DTRs b/l. Skin: Skin warm and dry. Normal skin color. Extremities: No lower extremity edema. Neuro: Oriented X 3. No motor deficit. Vital Signs: Vital Signs: Last Vital Signs Temp 98.2 F 06/02/25 19:05 Pulse 93 06/02/25 19:05 Resp 18 06/02/25 19:05 BP 148/87 H 06/02/25 19:05 Pulse Ox 96 06/02/25 19:05 O2 Del Method Room Air 06/02/25 19:05 BMI result Body Mass Index 25.3 Course Course Course Narrative: Deena Diehl GEOPHYSICAL COMPUTER 06/02 1551 This is a rapid medical exam. Deferred additional HPI, ROS, PE to primary provider. 50yo male with history of lumbar fusion, chronic back pain, HTN here with 5 days of lower back pain, numbness in groin, bladder incontinence x 2 today. Also c/o chest pain which began 1 hr ago. HR 120's in triage. Needs labs, UA, EKG. Medications Administered Discontinued Medications Generic Name Dose Route Start Last Admin Trade Name Freq PRN Reason Stop Dose Admin Acetaminophen 975 mg 06/02/25 20:22 06/02/25 20:30 Acetaminophen 325 Mg Tablet PO 06/02/25 20:23 975 mg ONCE ONE Administration Hydromorphone HCl 1 mg 06/02/25 17:29 06/02/25 17:45 Hydromorphone Hcl 1 Mg/Ml Syringe IVPUSH 06/02/25 17:30 1 mg ONCE ONE Administration Protocol Sodium Chloride 1,000 mls @ 999 mls/hr 06/02/25 17:29 06/02/25 20:32 Ns IV 06/02/25 18:29 Infused .Q1H1M ONE Infusion Iohexol 100 ml 06/02/25 18:39 06/02/25 18:42 Iohexol 350 Mg/Ml 100 Ml Infus..Btl IV 06/02/25 18:40 85 ml ONCE ONE Administration Ketorolac Tromethamine 15 mg 06/02/25 17:29 06/02/25 17:45 Ketorolac Tromethamine 15 Mg/Ml Vial IVPUSH 06/02/25 17:30 15 mg ONCE ONE Administration Lidocaine 1 patch 06/02/25 20:22 06/02/25 20:30 Lidocaine 4 % Patch Adh..Patch TRANSDERMA 06/02/25 20:23 1 patch ONCE ONE Administration Protocol Methocarbamol 1,000 mg 06/02/25 20:20 06/02/25 20:31 Methocarbamol 500 Mg Tablet PO 06/02/25 20:21 1,000 mg ONCE ONE Administration Medical Decision Making Medical Decision Making MDM Narrative: 5:31 PM 06/02/2025 (Kathi Faye NP): Upon my assessment of the patient, he does appear well, he answers my questions appropriately. He has CVA tenderness on the right, but also a positive straight leg raise test. This could be musculoskeletal back pain, or could be related to a renal stone. I have low clinical suspicion at this time for cauda equina or cord compression given he has 2+ patellar DTRs, and does not have any urinary or bowel incontinence, saddle anesthesia. Per the triage report he had reported some numbness and tingling going down into his groin, but he tells me it is more tingling and radiation of pain from the right flank. I do not see any documents records of an L4-L5 disc protrusion, though he tells me this was done at [facility], I was able to access his records and his discectomy was done in 2020. At this time, I do not have concern for cauda equina, his exam is overall reassuring, correlates more with musculoskeletal back pain. We will also obtain a bladder scan to rule out any possible urinary retention, and proceed with CT imaging of the abdomen and pelvis to assess for possible renal stone. We will administer pain control, fluid bolus and reassess. 8:30 PM--with CT results have returned. No evidence of any acute findings in the abdomen or pelvis. There is degenerative changes of the lumbar spine and lower thoracic spine. However, there was no obvious disc protrusion seen. At this time he does not need an MRI of the lumbar spine, I do not have clinical suspicion for cauda equina as again his exam is reassuring overall. His bladder scan had less than 20 mL, there was no urinary retention. This is likely acute musculoskeletal back pain from overuse, or due to chronic injury. I do recommend that he follows up with his neurosurgeon, as well as spinal doctor outpatient. In the ED he was given Robaxin, Tylenol, Lidoderm patches, pending reassessment for adequate pain control. 8:37 PM-- patient reports significant improvement, he is now requesting his discharge paperwork. He reports that he will follow up with the neurosurgeon, as well as spinal specialist he saw initially outpatient. I will prescribe him a course of Robaxin, I also recommended Tylenol, Lidoderm patches, to which he is agreeable. I provided him extensive return precautions to the ED, he expressed understanding with plan of care. Differential Diagnosis Differential Diagnoses: The differential diagnosis associated with the presentation includes Cauda equina, cord compression, spinal epidural abscess, musculoskeletal back pain, disc protrusion, renal stone, pyelonephritis Admission/Observation Consideration of admission/observation: Escalation of care including admission/observation considered (Not indicated) Lab Data MDM Lab Attestation statement: I reviewed the patient's lab results. (Overall reassuring.) 06/02/25 16:12 06/02/25 16:12 Labs: Lab Results 06/02/25 06/02/25 Range/Units 16:12 16:19 WBC 14.1 H (4.8-10.8) X10*3/uL RBC 4.87 (4.60-5.80) X10*6/uL Hgb 15.6 (14.0-18.0) g/dl Hct 44.0 (42.0-52.0) % MCV 90.3 (80.0-98.0) fL MCH 32.0 (27.0-33.0) pg MCHC 35.5 (31.0-36.0) g/dl RDW 12.7 (11.0-16.0) % Plt Count 293 (160-400) X10*3/uL MPV 10.4 (9.4-12.4) fL Immature Gran % (Auto) 0.8 H (0.0-0.4) % Neut % (Auto) 90.2 H (45-73) % Lymph % (Auto) 8.3 L (20-40) % [place]calfe % (Auto) 0.6 L (2-11) % Eos % (Auto) 0.0 (0-4) % Baso % (Auto) 0.1 (0-2) % Lymph # (Auto) 1.2 (1.2-4.9) X10*3/uL [place]calfe # (Auto) 0.1 (0.1-1.2) X10*3/uL Eos # (Auto) 0.0 (0.0-0.4) X10*3/uL Baso # (Auto) 0.0 (0.0-0.2) X10*3/uL Abs Immat Gran (auto) 0.12 H (0.00-0.03) X10*3/uL Absolute Neuts (auto) 12.7 H (2.0-8.3) x10*3/uL Absolute Nucleated RBC 0.000 (0.0-0.012) X10*3/uL Nucleated RBC % (auto) 0.0 (0.0-0.2) /100WBC Smear Tech's Comments VERIFIED Sodium 139 (135-145) mmol/L Potassium 4.0 (3.3-5.1) mmol/L Chloride 104 (96-108) mmol/L Carbon Dioxide 23 (22-29) mmol/L Anion Gap 16 (12-20) BUN 18 H (9-16) mg/dL Creatinine 1.09 (0.5-1.4) mg/dL Estim Creat Clear Calc 70.5 Estimated GFR > 60 Random Glucose 257 H (60-115) mg/dL Calcium 10.1 (8.4-10.2) mg/dL Total Bilirubin 0.3 (0.0-1.0) mg/dL Direct Bilirubin 0.1 (0.0-0.5) mg/dL AST 23 (5-37) U/L ALT 23 (0-40) U/L Alkaline Phosphatase 113 (39-117) U/L Troponin I High Sens < 2.7 (<3.5-35.0) ng/L Total Protein 7.4 (6.5-8.0) g/dL Albumin 4.9 (3.5-5.0) g/dL Urine Color Yellow Urine Appearance Cloudy Urine pH 5.0 (5.0-9.0) Ur Specific [place] 1.025 (1.005-1.025) Urine Protein Negative (Neg-Trace) mg/dL Urine Glucose (UA) >=1000 H (Negative) mg/dL Urine Ketones Negative (Negative) mg/dL Urine Blood Negative (Negative) Urine Nitrite Negative (Negative) Ur Leukocyte Esterase Negative (Negative) Urine RBC 0-2 (0-2) /HPF Urine WBC 0-5 (0-5) /HPF Ur Squamous Epith Cells 0-2 (0-2) /HPF Urine Bacteria None Seen (None Seen) Hyaline Casts 0-2 (0-2) /LPF Independent Interpretation I performed an independent interpretation of an: EKG Interpretation: Rate: 109 Rhythm: ST [place]: 76/-5/61 Normal P waves. Normal DENILSON. Normal QRS complex. ST T wave : no dep, elev qTC: 457 prior studies:similar The study has been interpreted contemporaneously by me. LI have reviewed the patient's imaging and agree with the radiologist's findings. Radiology Impression Discussion of test interpretation with radiology: I have reviewed the radiologist's reading. Radiologist Impression: IMPRESSION: No acute CT findings of the abdomen or pelvis. External Record Review External record reviewed: Inpatient record ([facility]), Office record, Outpatient record, Prior outpatient radiology, Primary care record and Outside ED record Chronic Conditions Patient?s care impacted by: Other (Lumbar radiculopathy ) Social Determinants Patient?s care significantly limited by Social Determinants of Health including: Problems related to primary support group and Problems related to employment Discharge Plan Discharge Clinical Impression: Low back pain Qualifiers: Chronicity: acute Back pain laterality: right Sciatica presence: unspecified whether sciatica present Qualified Code(s): M54.50 - Low back pain, unspecified Patient Disposition: Home, Self-Care Instructions: Acute Low Back Pain (ED) Additional Instructions: As we discussed, you were seen in the ER today for evaluation of back pain. Your lab work was overall reassuring, and your urine sample showed no evidence of any infection or blood. You had a CT scan of her abdomen, pelvis which revealed no acute intra-abdominal or pelvic abnormalities, but does show evidence of degenerative disease of the lumbar and lumbar thoracic spine. I do want you to follow up with both your previous orthopedic provider, as well as Neurosurgery for re-evaluation in the few days of your back pain. As we discussed if you develop any worsening complaints including but not limited to loss of bowel or bladder function (no sensation to urinate, defecate, leading to incontinence), weakness or numbness in the legs or groin, or feeling as though you are riding a horse with numbness in the groin, fevers or chills, please return to the ER immediately. Prescriptions: New methocarbamol 500 mg tablet 1,000 mg PO QID PRN (Reason: spasms) 5 Days Qty: 28 0RF acetaminophen 500 mg tablet 1,000 mg PO Q8H PRN (Reason: fever or pain) 7 Days Qty: 30 0RF lidocaine [Lidoderm] 5 % adhesive patch,medicated 1 patch topical DAILY 7 Days Qty: 15 0RF Rx Instructions: leave on most painful area for up to 12 hrs No Action doxycycline hyclate 100 mg tablet 100 mg PO BID 7 Days Qty: 14 0RF cephalexin 500 mg capsule 500 mg PO QID 7 Days Qty: 28 0RF metoprolol succinate 25 mg tablet extended release 24 hr 25 mg PO DAILY Qty: 90 3RF losartan 25 mg tablet 25 mg PO DAILY Qty: 90 3RF Referrals: [facility] [place] [facility] [place] [Provider Group, Family Practice] Print Language: Greenlandic
--- NOTE | 2025-06-02 15:54 | ECG_ITS ---
Test Reason : CP Blood Pressure : */* mmHG Vent. Rate : 109 BPM Atrial Rate : 109 BPM P-R Int : 160 ms QRS Dur : 118 ms QT Int : 340 ms P-R-T Axes : 76 -5 61 degrees QTcB Int : 457 ms Sinus tachycardia Right bundle branch block Possible Lateral infarct , age undetermined Cannot rule out Inferior infarct , age undetermined Abnormal ECG When compared with ECG of 28-Apr-2025 18:27, No significant changes seen Referred By: Deena Diehl Electronically Signed By: Tito Pike
[2025-06-02 16:17] LABS: Hematocrit 44.0 % (42.0-52.0); Hemoglobin 15.6 g/dl (14.0-18.0); Imm Gran Abs Auto 0.12 X10*3/uL (0.00-0.03); Imm Gran Pct Auto 0.8 % (0.0-0.4); Lymphocytes Absolute Auto 1.2 X10*3/uL (1.2-4.9); MANUAL DIFF FLAG SCAN; Mean Corpuscular HGB Conc 35.5 g/dl (31.0-36.0); Mean Corpuscular Hemoglobin 32.0 pg (27.0-33.0); Mean Corpuscular Volume 90.3 fL (80.0-98.0); NRBC Abs Auto 0.000 X10*3/uL (0.0-0.012); NRBC Pct Auto 0.0 /100WBC (0.0-0.2); Platelet Count 293 X10*3/uL (160-400); Red Blood Count 4.87 X10*6/uL (4.60-5.80); SCAN SMEAR FLAG 1; White Blood Count 14.1 X10*3/uL (4.8-10.8)
[2025-06-02 16:36] LABS: Appearance Urine Cloudy; Glucose Urine UA >=1000 mg/dL (Negative); PH 5.0 (5.0-9.0); Specific Gravity - Urine 1.025 (1.005-1.025); UMIC TRIGGER UACC YES
[2025-06-02 16:37] LABS: Anion Gap 16 (12-20); Blood Urea Nitrogen 18 mg/dL (9-16); Calcium 10.1 mg/dL (8.4-10.2); Carbon Dioxide 23 mmol/L (22-29); Chloride 104 mmol/L (96-108); Creatinine Clr Calc Pharmacy 70.5; Estimated Glomerular Filt Rate > 60; Potassium 4.0 mmol/L (3.3-5.1); Sodium 139 mmol/L (135-145)
[2025-06-02 16:49] LABS: Troponin-I High Sensitivity < 2.7 ng/L (<3.5-35.0)
[2025-06-02 17:05] VITALS: BP 148/83; PULSE 104; RESP 14; TEMP 36.7; O2SAT 97
[2025-06-02 17:45] VITALS: RESP 17
[2025-06-02 17:51] LABS: Alanine Aminotransferase 23 U/L (0-40); Albumin Level 4.9 g/dL (3.5-5.0); Alkaline Phosphatase 113 U/L (39-117); Aspartate Amino Transferase 23 U/L (5-37); Total Protein 7.4 g/dL (6.5-8.0)
--- OUTSIDE RECORDS SUMMARY | 2025-06-02 18:14 | XMS_ITS | Clinical Summary ---
Author Organization [facility] Address [address] [place] [address] Care Team Providers Care Welding Robot Operator Name Role Phone Kenneth Walsh MD Primary Care Provider [phone] Surgical History Surgery Date Site/Laterality Comments OTHER SURGICAL HISTORY PROCEDURE: IN ANESTHESIA OPEN PROCEDURES UPPER 2/3 FEMUR NOS; COMMENT: 1989 KNEE ARTHROSCOPY PROCEDURE: IN ARTHROSCOPY AID TX SPINE&/FX KNEE W/O FIXJ; [...] on file Sexual Orientation Not on file Plan of Treatment Health Maintenance Due Date [...] age to complete this topic Care Teams Welding Robot Operator Relationship Specialty Start Date End Date Kenneth Walsh MD [address] [place] [address] [address] [place], [place] PCP - General Internal Medicine 03/25/21
[2025-06-02] MEDS: iohexoL 350 MG/ML 100 ML INFUS..BTL IV (18:42)
[2025-06-02 19:05] VITALS: BP 148/87; PULSE 93; RESP 18; TEMP 36.8; O2SAT 96
--- NOTE | 2025-06-02 19:07 | PC.NURSE ---
20 g IV in right AC
[2025-06-02] MEDS: Lidocaine 4 % Patch ADH..PATCH 1 PATCH TRANSDERMA (20:30)
[2025-06-02 20:50] VITALS: BP 148/87; PULSE 93; RESP 18; TEMP 36.8; O2SAT 96
== END 2025-06-02 20:51 | disposition home or self-care (01) ==
PROVIDERS: Nurse Practitioner; Nurse Practitioner Family; Emergency Provider Emergency Medicine
DX: M54.50 Low back pain, unspecified (principal); M79.605 Pain in left leg; M79.604 Pain in right leg; G89.29 Other chronic pain; Z87.442 Personal history of urinary calculi; I25.2 Old myocardial infarction; Z87.39 Personal history of other diseases of the musculoskeletal system and connective tissue; Z72.0 Tobacco use; Z79.899 Other long term (current) drug therapy
CPT/HCPCS: 36415; 51798; 74177; 80048; 80076; 81001; 84484; 85025; 93005; 96361; 96374; 96375; 99285; J1171; J1885; Q9967

== ENCOUNTER → 2025-06-02 15:54 | Outpatient (BNV) | payer MEDICARE, MEDICAID, SELFPAY | PROVIDERS: Emergency Provider Emergency Medicine; Visit Provider Internal Medicine Cardiovascular Disease | DX: R00.0 Tachycardia, unspecified (principal); I45.10 Unspecified right bundle-branch block | CPT/HCPCS: 93010 ==